=== PATIENT | male | born 1985 | race Caucasian/White ===

== ENCOUNTER 2016-10-09 07:02 | Emergency (ER) | payer OTHER ==
[~2016-10-09] VITALS: Ht 175.3 cm; Wt 66.8 kg
[2016-10-09] MEDS ORDERED: TRAM50TA4 PO (07:11)
[2016-10-09 08:17] VITALS: BP 125/74
== END 2016-10-09 09:05 | disposition left against medical advice (07) ==
LOC: EMS 07:05
DX: S00.83XA Contusion of other part of head, initial encounter (principal); F10.20 Alcohol dependence, uncomplicated; F17.210 Nicotine dependence, cigarettes, uncomplicated; W50.0XXA Accidental hit or strike by another person, initial encounter; Y93.89 Activity, other specified; Y92.89 Other specified places as the place of occurrence of the external cause; Y99.8 Other external cause status
CPT/HCPCS: 70150; 99284